=== PATIENT | male | born 2000 | race Caucasian/White ===

== ENCOUNTER 2025-03-14 00:38 | Emergency (ER) | payer SELFPAY ==
[~2025-03-14] VITALS: Ht 182.9 cm; Wt 77.0 kg
[2025-03-14 00:40] VITALS: BP 120/80; PULSE 88; RESP 16; TEMP 36.9; O2SAT 98
== END 2025-03-14 01:25 | disposition home or self-care (01) ==
LOC: ER 00:50
DX: F10.129 Alcohol abuse with intoxication, unspecified (principal); Y90.9 Presence of alcohol in blood, level not specified
CPT/HCPCS: 99283